=== PATIENT | female | born 1985 | race Caucasian/White ===

== ENCOUNTER 2017-01-05 09:30 | Day surgery (SDC) | payer MEDICAID ==
[~2017-01-05] VITALS: Ht 160 cm; Wt 53.5 kg
[2017-01-05 08:16] LABS: HEMATOCRIT 35.8 % (36.0-48.0); HEMOGLOBIN 12.5 g/dL (12-16); LYMPHOCYTES 6.7 % (15-50); MCH 33.5 pg (26.0-34.0); MCHC 34.9 g/dL (31.0-37.0); MEAN PLATELET VOLUME 8.6 fL (7.4-10.4); NEUTROPHILS 84.1 % (40-80); RBC 3.73 10x6/uL (4.00-5.40); RDW 12.3 % (11.5-14.5); WBC 15.1 10x3/uL (4.8-10.8)
[2017-01-05 08:16] LABS: HCG URINE NEGATIVE (NEGATIVE)
[2017-01-05 08:19] LABS: UDS - AMPHET POSITIVE QUAL (NEGATIVE); UDS - BARB NEGATIVE QUAL (NEGATIVE); UDS - BENZO NEGATIVE QUAL (NEGATIVE); UDS - COCAINE NEGATIVE QUAL (NEGATIVE); UDS - METH NEGATIVE QUAL (NEGATIVE); UDS - OPIATE NEGATIVE QUAL (NEGATIVE); UDS - PCP NEGATIVE QUAL (NEGATIVE); UDS - THC NEGATIVE QUAL (NEGATIVE)
[2017-01-05 08:24] LABS: CALC OSMOLALITY 278 mosm/kg (275-300); CALCIUM 7.9 mg/dL (8.5-10.1); CARBON DIOXIDE 20.4 mmol/L (21.0-32.0); CHLORIDE - SERUM 103 mmol/L (98-107); CREATININE - SERUM 0.9 mg/dL (0.6-1.3); GLUCOSE 88 mg/dL (74-106); POTASSIUM - SERUM 3.7 mmol/L (3.5-5.1); SODIUM 139 mmol/L (136-145); UREA NITROGEN 18 mg/dL (7-18); eGFR NON AFRICAN AMERICAN 76 mL/min (90-120)
[2017-01-05 08:28] LABS: PLATELET COUNT 201 10x3/uL (130-400)
[2017-01-05 08:31] LABS: AMORPHOUS SEDIMENT >1+ /lpf (NONE SEEN); APPEARANCE TURBID (CLEAR); BACTERIA MODERATE /hpf (NONE SEEN); BILIRUBIN NEGATIVE (NEGATIVE); COLOR YELLOW (YELLOW); GLUCOSE NEGATIVE (NEGATIVE); KETONE SMALL mg/dL (NEGATIVE); LEUKOCYTE ESTERASE TRACE (NEGATIVE); MUCUS <1+ /lpf (NONE SEEN); NITRITE NEGATIVE (NEGATIVE); PROTEIN 1+ mg/dL (NEGATIVE); SPECIFIC GRAVITY 1.025 (1.005-1.020); UROBILINOGEN NORMAL (NORMAL)
--- NOTE | 2017-01-05 10:14 | NUR ---
TRANSFER FROM ER BY STRETCHER. OREINTED TO ROOM. CALL LIGHT IN REACH. WILL CONT. PLAN OF CARE.
[2017-01-05 10:44] VITALS: BP 137/94; Ht 160 cm; Wt 53.5 kg
[2017-01-05 15:13] VITALS: BP 128/90
--- NOTE | 2017-01-05 16:00 | NUR ---
CONSENTS SIGNED FOR SURGERY.
--- NOTE | 2017-01-05 16:57 | NUR ---
PRE-OPS GIVEN. TO OR BY BED.
[2017-01-05 20:00] VITALS: BP 113/74
--- NOTE | 2017-01-05 20:00 | NUR ---
BACK FROM THE OR. URINATED IN TOILET. EATING SANDWICH AND DRINKING SPRITE. OK TO SC HOME.
--- NOTE | 2017-01-05 22:15 | NUR ---
SLEEPING NO DISTRESS NOTED. STATES RIDE WILL BE HERE AFTER 10PM.
--- NOTE | 2017-01-05 22:59 | NUR ---
DISCHARGE TO HOME IV DCD WITH CATH INTACT. VOICES NO QUESTIONS. RX HYDROCODONE GIVEN. APPT TUESDAY WITH DR FONG.
--- NOTE | 2017-01-05 23:00 | NUR ---
ESCORTED TO BACK IN . LEFT WITH FRIEND.
--- NOTE | 2017-01-07 09:10 | OP ---
PATIENT NAME: DIANA ALICIA MEDICAL RECORD: [id number] :81 LOCATION:D. D.2125 ADMISSION DATE:01/05/17 SURGEON: PETE BROOKS MD DATE OF OPERATION: 01/05/2017 SURGEON: Pete Brooks MD ANESTHESIA: General anesthesia by Dr. Hager. PREOPERATIVE DIAGNOSIS: Left distal ureteral stones times 2, 4 and 5 mm with left renal forniceal rupture. POSTOPERATIVE DIAGNOSIS: Left distal ureteral radiolucent stone, 3 mm, bleeding from left kidney from forniceal rupture. PROCEDURES: Cystoscopy, left ureteroscopy and stone extraction, left ureteral stent insertion 6-Ghanaian x 24 cm with string attached. SPECIMENS: None. ESTIMATED BLOOD LOSS: None. CLINICAL HISTORY: This is a 31-year-old female, who has had pain for an indeterminant amount of time. She came to the Emergency Room today because she claims she could not urinate. She was also complaining of severe pain. The Emergency Room physician noted that she smelled heavily of alcohol. When a drug screen was run, the urine was positive for methamphetamines. The patient does admit to using "ice." She denies using cocaine, heroin, marijuana or crystal meth. The CT does show a left hydroureteronephrosis with a forniceal rupture of the kidney from the pressure within the system. The obstruction seen to be from 2 stones in the distal ureter causing the obstruction. She was given Levaquin chuck boner to the OR and she comes now to have the stone removed by ureteroscopy and stent inserted. DESCRIPTION OF PROCEDURE: The patient was given induction of general anesthesia. She was placed in the dorsal lithotomy position, prepped and draped. A 21-Ghanaian cystoscope with 30-degree lens was used for visualization. The patient has single ureteral orifices. No bladder tumors were seen. Fluoroscopy did not reveal any radiodense stone. We placed an open-ended ureteral catheter into the left ureteral orifice and performed a retrograde pyelogram with diluted contrast. Hydronephrosis was seen, but no obvious filling defects were noted. A Sensor wire was placed into the renal pelvis. The ureteral catheter was then removed. Over the Sensor wire, we dilated the ureteral orifice with a 21-Ghanaian x 4 cm long ureteral dilation balloon. The balloon was inflated to 18 atmospheres for a few seconds and deflated. The ureteral dilation balloon was then completely removed. After this procedure, we noted a significant amount of bleeding coming from the kidney. We switched out to the rigid ureteroscope. Following the wire, we found the trail of blood clots coming from the kidney all the way up to the proximal ureter. The stone was hard to see, but once we came distally near the ureteral orifice, we found the stone. The ureteral dilation balloon had created a tear in the lateral wall of the distal ureter and the stone was actually sitting in the extraureteral tissue. We introduced a basket 0-tip 4 wire basket 3-Ghanaian in size. We opened up the basket and were about to basket the stone out when the irrigation from the ureteroscope pushed the stone into the bladder. I performed Ureteroscopy up OPERATIVE REPORT [id number] ANGÉLICA ALICIAICE the distal ureter to the mid ureteral level and did not find that the stone had migrated proximally. At this point, we had a great deal of difficulty seeing in the bladder due to the bloody urine. We switched back to the cystoscope and used an Ellik evacuator to try to remove the stone, which I felt that gone into the bladder. Once we remove the clots using the Ellik evacuator, cystoscopy did show the stone was sitting on the floor of the bladder. However, our priority was to insert the ureteral stent and therefore the wire was backloaded into the cystoscope and the stent was inserted over the wire. Once the stent was in correct position, the wire was withdrawn and the distal end of stent was pushed into the bladder using a pusher. The guidewire was then entirely withdrawn. The string on the distal end of stent was maintained. It hangs out of the urethra. We pulled the cystoscope out so that the string would not be the impeded upon in the urethra. We then reintroduced the cystoscope with the aim of using a basket to remove the stone from the bladder. However, the blood coming from the left ureteral orifice from the kidney made visibility impossible. Therefore, we abandoned any further attempts. The string on the distal end of stent was taped to the suprapubic area with a small piece of Tegaderm. The stone is freely mobile and she will void it out. I will see the patient in followup next week to remove the stent by pulling on the string. TRANSINT:[id number] Voice Confirmation ID: [id number] DOCUMENT ID: [id number] PETE BROOKS MD at 0910 CC: [id number] DICTATION DATE: 01/05/171909 LEARNING OPERATIONS SPECIALIST: 01/06/17 [id number] DIS IN 01/05/17 [facility] [address] [place] [address]
== END 2017-01-05 23:01 | disposition home or self-care (01) ==
LOC: OBSVTIME → D.OPS 09:30 → D.M2 09:55 → OBSVTIME 09:55 → D.ER 09:55 → D.M2 09:55 → EDSTATUS 16:00 → D.OPS 23:01 → D.M2 23:01
PROVIDERS: Emergency Medicine
DX: N13.2 Hydronephrosis with renal and ureteral calculous obstruction (principal); F15.90 Other stimulant use, unspecified, uncomplicated

== ENCOUNTER 2017-01-10 17:35 | Emergency (ER) | payer MEDICAID ==
[2017-01-05 10:44] VITALS: BMI 20.9
== END 2017-01-10 19:10 | disposition left against medical advice (07) ==
LOC: D.ER 17:35
DX: G89.18 Other acute postprocedural pain (principal); N23 Unspecified renal colic; R10.2 Pelvic and perineal pain

== ENCOUNTER 2017-08-26 13:48 | Inpatient (IN) | payer MEDICAID ==
[~2017-08-26] VITALS: Ht 160 cm; Wt 50.6 kg
[2017-08-26 14:10] LABS: APPEARANCE CLEAR (CLEAR); BILIRUBIN NEGATIVE (NEGATIVE); COLOR STRAW (YELLOW); GLUCOSE NEGATIVE (NEGATIVE); KETONE NEGATIVE (NEGATIVE); NITRITE NEGATIVE (NEGATIVE); PROTEIN NEGATIVE (NEGATIVE); UROBILINOGEN NORMAL (NORMAL)
[2017-08-26 14:24] LABS: UDS - AMPHET POSITIVE QUAL (NEGATIVE); UDS - BARB NEGATIVE QUAL (NEGATIVE); UDS - BENZO POSITIVE QUAL (NEGATIVE); UDS - COCAINE NEGATIVE QUAL (NEGATIVE); UDS - OPIATE NEGATIVE QUAL (NEGATIVE); UDS - PCP NEGATIVE QUAL (NEGATIVE); UDS - THC NEGATIVE QUAL (NEGATIVE)
[2017-08-26 14:51] LABS: ALBUMIN 4.1 g/dL (3.4-5.0); ALKALINE PHOSPHATASE 100 U/L (46-116); ALT (SGPT) 24 U/L (10-68); BILIRUBIN - TOTAL 0.31 mg/dL (0.2-1.3); CALC OSMOLALITY 278 mosm/kg (275-300); CALCIUM 8.4 mg/dL (8.5-10.1); CARBON DIOXIDE 21.4 mmol/L (21.0-32.0); CHLORIDE - SERUM 104 mmol/L (98-107); CREATININE - SERUM 0.7 mg/dL (0.6-1.3); GLUCOSE 98 mg/dL (74-106); PROTEIN - SERUM 8.1 g/dL (6.4-8.2); SODIUM 141 mmol/L (136-145); UREA NITROGEN 7 mg/dL (7-18); eGFR NON AFRICAN AMERICAN > 90 mL/min (90-120)
[2017-08-26 14:57] LABS: POTASSIUM - SERUM 2.7 mmol/L (3.5-5.1)
[2017-08-26 15:39] LABS: BASOPHILS 0.3 % (0-2); HEMATOCRIT 40.2 % (36.0-48.0); HEMOGLOBIN 13.9 g/dL (12-16); LYMPHOCYTES 25.5 % (15-50); MCH 33.1 pg (26.0-34.0); MCHC 34.6 g/dL (31.0-37.0); MCV 95.7 fL (80.0-100.0); MEAN PLATELET VOLUME 9.2 fL (7.4-10.4); NEUTROPHILS 64.2 % (40-80); PLATELET COUNT 164 10x3/uL (130-400); RDW 13.3 % (11.5-14.5)
[2017-08-26 20:10] LABS: POTASSIUM - SERUM 4.2 mmol/L (3.5-5.1)
[2017-08-27] VITALS (13 sets, daily range): BP systolic 95–125; BP diastolic 48–77; Ht 160 cm; Wt 50.6 kg
[2017-08-27 06:52] LABS: BASOPHILS 0.2 % (0-2); EOSINOPHILS 2.6 % (0-7); HEMATOCRIT 35.3 % (36.0-48.0); HEMOGLOBIN 11.8 g/dL (12-16); IMMATURE GRANULOCYTES 0.2 % (0-5); MCH 32.3 pg (26.0-34.0); MCHC 33.4 g/dL (31.0-37.0); MCV 96.7 fL (80.0-100.0); MONOCYTES 10.3 % (2-11); NEUTROPHILS 63.7 % (40-80); PLATELET COUNT 136 10x3/uL (130-400); RBC 3.65 10x6/uL (4.00-5.40); RDW 13.6 % (11.5-14.5); WBC 6.2 10x3/uL (4.8-10.8)
[2017-08-27 07:08] LABS: ALBUMIN 3.4 g/dL (3.4-5.0); ALKALINE PHOSPHATASE 84 U/L (46-116); ALT (SGPT) 21 U/L (10-68); BILIRUBIN - TOTAL 0.69 mg/dL (0.2-1.3); CALCIUM 7.8 mg/dL (8.5-10.1); CARBON DIOXIDE 19.3 mmol/L (21.0-32.0); CHLORIDE - SERUM 103 mmol/L (98-107); CREATININE - SERUM 0.6 mg/dL (0.6-1.3); POTASSIUM - SERUM 3.7 mmol/L (3.5-5.1); PROTEIN - SERUM 6.6 g/dL (6.4-8.2); SODIUM 136 mmol/L (136-145); eGFR NON AFRICAN AMERICAN > 90 mL/min (90-120)
[2017-08-27 07:13] LABS: CALC OSMOLALITY 268 mosm/kg (275-300); GLUCOSE 66 mg/dL (74-106); UREA NITROGEN 10 mg/dL (7-18)
== END 2017-08-27 13:34 | disposition home or self-care (01) | DRG 72 ==
LOC: D.ER 13:48 → D.SDCHOLD 21:12 → D.CVICU 23:38
PROVIDERS: Family Medicine
DX: G93.40 Encephalopathy, unspecified (principal); F15.10 Other stimulant abuse, uncomplicated; F10.129 Alcohol abuse with intoxication, unspecified; Y90.8 Blood alcohol level of 240 mg/100 ml or more; F19.10 Other psychoactive substance abuse, uncomplicated; Z72.0 Tobacco use

== ENCOUNTER 2018-09-08 13:03 | Emergency (ER) | payer SELFPAY ==
[~2018-09-08] VITALS: Ht 160 cm; Wt 54.5 kg
[2018-09-08 13:04] VITALS: BP 143/91; Ht 160 cm; Wt 54.5 kg
[2018-09-08 13:49] LABS: APPEARANCE CLEAR (CLEAR); BILIRUBIN NEGATIVE (NEGATIVE); COLOR STRAW (YELLOW); GLUCOSE NEGATIVE (NEGATIVE); KETONE NEGATIVE (NEGATIVE); NITRITE NEGATIVE (NEGATIVE); PROTEIN NEGATIVE (NEGATIVE); SPECIFIC GRAVITY 1.005 (1.005-1.020); UROBILINOGEN NORMAL (NORMAL)
[2018-09-08 13:50] LABS: HCG URINE NEGATIVE (NEGATIVE)
[2018-09-08 13:55] LABS: ALBUMIN 3.2 g/dL (3.4-5.0); ALKALINE PHOSPHATASE 88 U/L (46-116); ALT (SGPT) 14 U/L (10-68); BILIRUBIN - TOTAL 0.12 mg/dL (0.2-1.3); CALC OSMOLALITY 277 mosm/kg (275-300); CALCIUM 7.7 mg/dL (8.5-10.1); CARBON DIOXIDE 30.4 mmol/L (21.0-32.0); CHLORIDE - SERUM 102 mmol/L (98-107); CREATININE - SERUM 0.7 mg/dL (0.6-1.3); GLUCOSE 92 mg/dL (74-106); POTASSIUM - SERUM 3.7 mmol/L (3.5-5.1); PROTEIN - SERUM 6.8 g/dL (6.4-8.2); SODIUM 140 mmol/L (136-145); UREA NITROGEN 9 mg/dL (7-18); eGFR NON AFRICAN AMERICAN > 90 mL/min (90-120)
[2018-09-08 13:57] LABS: AMYLASE - SERUM 54 U/L (25-115); LIPASE 115 U/L (73-393); TROPONIN-I < 0.017 ng/mL (0.000-0.060)
[2018-09-08 14:02] LABS: HEMATOCRIT 35.9 % (36.0-48.0); HEMOGLOBIN 12.3 g/dL (12-16); LYMPHOCYTES 17.4 % (15-50); MCH 32.7 pg (26.0-34.0); MCHC 34.3 g/dL (31.0-37.0); MCV 95.5 fL (80.0-100.0); NEUTROPHILS 75.2 % (40-80); RBC 3.76 10x6/uL (4.00-5.40); RDW 13.4 % (11.5-14.5); WBC 8.5 10x3/uL (4.8-10.8)
[2018-09-08 14:03] LABS: PLATELET COUNT 252 10x3/uL (130-400)
== END 2018-09-08 15:25 | disposition left against medical advice (07) ==
LOC: D.ER 13:03
PROVIDERS: Family Medicine
DX: K62.5 Hemorrhage of anus and rectum (principal); N93.9 Abnormal uterine and vaginal bleeding, unspecified; R53.81 Other malaise; F17.210 Nicotine dependence, cigarettes, uncomplicated